=== PATIENT | male | born 1940 | race Caucasian/White ===

== ENCOUNTER 2019-03-24 16:00 | Inpatient (IN) ==
[2019-03-24] MEDS ORDERED: HYDROmorphone 2 MG/1 ML VIAL IV STA (16:02)
[2019-03-24] MEDS ORDERED: ONDANSETRON 4 MG/2 ML VIAL IV STA (16:02)
[2019-03-24 18:38] LABS: Basophils # 0.1 10*3/uL (0.0-0.2); Basophils % 0.4 % (0.0-0.8); Eosinophils % 0.2 % (0.00-10.9); Hematocrit 46.9 VOL% (42.0-52.0); Hemoglobin 15.7 GM/DL (14.0-18.0); Immature Granulocytes % 1.2 %; Lymphocytes # 1.1 10*3/uL (1.4-4.0); Lymphocytes % 6.4 % (21.2-54.2); Mean Corpuscular HGB Conc 33.5 GM/DL (32-36); Mean Corpuscular Volume 94.7 FL (87-102); Mean Platelet Volume 11.1 FL (9.6-12.0); Monocytes % 8.6 % (1.7-12.7); Neutrophils % 83.2 % (38.7-73.9); Platelet Count 224 T/CUMM (130-400); Red Blood Count 4.95 MC/CUMM (3.8-5.5); Red Cell Distribution Width 13.6 % (9.3-17.3)
[2019-03-24 18:43] LABS: PT Patient Result 10.5 SECS; Partial Thromboplastin Time < 21.0 SECS (0-40)
[2019-03-24 18:56] LABS: Albumin 3.7 G/DL (3.4-5.0); Bilirubin,Total 0.7 MG/DL (0.2-1.0); Calcium 8.9 MG/DL (8.5-10.1); Osmolality,Calculated 285.1 MOS/KG (273-304); Total Protein 7.1 G/DL (6.4-8.3)
[2019-03-24] MEDS ORDERED: ACETAMINOPHEN 325 MG TABLET PO PRN (19:08)
[2019-03-24] MEDS ORDERED: ONDANSETRON 4 MG/2 ML VIAL IV PRN (19:08)
[2019-03-24] MEDS: SODIUM CHLORIDE 0.9% 1,000 ML IV SCH (20:32)
[2019-03-24] MEDS: DOCUSATE SODIUM 100 MG CAPSULE PO SCH (20:35)
[2019-03-24] MEDS: SIMVASTATIN 80 MG TABLET PO SCH (20:36)
[2019-03-24] MEDS: HYDROmorphone 2 MG/1 ML VIAL IV PRN (22:24)
[2019-03-25] MEDS: HYDROmorphone 2 MG/1 ML VIAL IV PRN ×2 (02:41→07:37)
[2019-03-25 04:24] LABS: Apearance,Urine CLEAR (Clear); Bacteria,Urine Occasional /HPF (Few); Bilirubin,Urine Negative (Negative); Blood, Urine Negative (Negative); Glucose,Urine (UA) 50 mg/dL (Negative); Hyaline Casts,Urine 1 /LPF (0-3); Ketones,Urine 5 mg/dL (Negative); Mucus,Urine Occasional /LPF (Occasional); Nitrite,Urine Negative (Negative); Protein,Urine Negative; RBC,Urine 6 /HPF (0-4); Squamous Epithelial Cell,Urine Occasional /HPF (0-10); Urine Color Yellow (Yellow); Urine Specific Gravity 1.023 (1.001-1.035); Urine Urobilinogen < 2.0 EU/DL (0.2-1.0); WBC,Urine 1 /HPF (0-6)
[2019-03-25] MEDS: SODIUM CHLORIDE 0.9% 1,000 ML IV SCH (04:47)
[2019-03-25] MEDS ORDERED: VANCOMYCIN INJ 1,250 MG in SODIUM CHLORIDE 0.9% 250 ML IV ONE (06:00)
[2019-03-25] MEDS ORDERED: ceFAZolin 2,000 MG in PREMIX 1 EACH IV ONE (06:00)
[2019-03-25] MEDS: LEVOTHYROXINE 100 MCG TABLET PO SCH (08:14)
[2019-03-25] MEDS: DOCUSATE SODIUM 100 MG CAPSULE PO SCH ×2 (08:15→21:01)
[2019-03-25] MEDS: PANTOPRAZOLE 40 MG TABLET PO SCH (08:15)
[2019-03-25] MEDS ORDERED: PANTOPRAZOLE 40 MG TABLET PO SCH (09:00)
[2019-03-25] MEDS ORDERED: fentaNYL 100 MCG/2 ML VIAL ONE (12:19)
[2019-03-25] MEDS ORDERED: MIDAZOLAM 2 MG/2 ML VIAL ONE (12:20)
[2019-03-25] MEDS ORDERED: BACITRACIN OINT 0.9 GM PACK TOP ONE (12:37)
[2019-03-25] MEDS ORDERED: TRANEXAMIC ACID 1,000 MG/10 ML VIAL ONE ×2 (12:37→16:15)
[2019-03-25] MEDS ORDERED: BUPIVACAINE 0.25% /EPI 10 ML VIAL ONE (15:46)
[2019-03-25] MEDS ORDERED: MAGNESIUM HYDROXIDE SUSP 30 ML UDCUP PO PRN (16:05)
[2019-03-25] MEDS ORDERED: HYDROmorphone 2 MG/1 ML VIAL IV PRN (16:05)
[2019-03-25] MEDS ORDERED: KETOROLAC 15 MG/1 ML VIAL IV PRN (16:05)
[2019-03-25] MEDS ORDERED: PROPOFOL 200 MG/20 ML VIAL IV ONE (16:14)
[2019-03-25] MEDS ORDERED: ONDANSETRON 4 MG/2 ML VIAL ONE (16:15)
[2019-03-25] MEDS ORDERED: ROCURONIUM 100 MG/10 ML VIAL IV ONE (16:15)
[2019-03-25] MEDS ORDERED: SODIUM CHLORIDE 0.9% 250 ML IV ONE (16:15)
[2019-03-25] MEDS ORDERED: PHENYLEPHRINE 10 MG/1 ML VIAL IV ONE (16:15)
[2019-03-25] MEDS ORDERED: SEVOFLURANE 1 UNIT/15 MINUTE INH ONE (16:15)
[2019-03-25] MEDS: ceFAZolin 2,000 MG in SODIUM CHLORIDE 0.9% 100 ML IV SCH (20:54)
[2019-03-25] MEDS: SIMVASTATIN 80 MG TABLET PO SCH (21:00)
[2019-03-25] MEDS: CARVEDILOL 3.125 MG TABLET PO SCH (21:01)
[2019-03-26] MEDS: SODIUM CHLORIDE 0.9% 1,000 ML IV SCH ×3 (00:08→08:16)
[2019-03-26] MEDS: VANCOMYCIN INJ 1,000 MG in SODIUM CHLORIDE 0.9% 250 ML IV SCH ×2 (00:19→11:57)
[2019-03-26] MEDS: ceFAZolin 2,000 MG in SODIUM CHLORIDE 0.9% 100 ML IV SCH ×3 (03:07→21:15)
[2019-03-26 05:23] LABS: Basophils % 0.2 % (0.0-0.8); Hematocrit 35.1 VOL% (42.0-52.0); Hemoglobin 11.8 GM/DL (14.0-18.0); Immature Granulocytes % 0.5 %; Immature Granulocytes Absolute 0.07 #; Lymphocytes # 0.8 10*3/uL (1.4-4.0); Lymphocytes % 6.2 % (21.2-54.2); Mean Corpuscular HGB Conc 33.6 GM/DL (32-36); Mean Corpuscular Volume 96.4 FL (87-102); Mean Platelet Volume 11.9 FL (9.6-12.0); Neutrophils % 83.1 % (38.7-73.9); Platelet Count 139 T/CUMM (130-400); Red Blood Count 3.64 MC/CUMM (3.8-5.5); Red Cell Distribution Width 13.5 % (9.3-17.3); White Blood Count 13.2 T/CUMM (4-12)
[2019-03-26 05:46] LABS: Calcium 8.5 MG/DL (8.5-10.1); Osmolality,Calculated 279.4 MOS/KG (273-304)
[2019-03-26] MEDS: LEVOTHYROXINE 100 MCG TABLET PO SCH (09:48)
[2019-03-26] MEDS: ASPIRIN CHEW 81 MG TABLET PO SCH (09:48)
[2019-03-26] MEDS: DOCUSATE SODIUM 100 MG CAPSULE PO SCH ×2 (09:48→21:14)
[2019-03-26] MEDS: CARVEDILOL 3.125 MG TABLET PO SCH (09:48)
[2019-03-26] MEDS: PANTOPRAZOLE 40 MG TABLET PO SCH (09:48)
[2019-03-26] MEDS: SIMVASTATIN 80 MG TABLET PO SCH (21:14)
[2019-03-26] MEDS: CARVEDILOL 6.25 MG TABLET PO SCH (21:14)
[2019-03-27] MEDS: VANCOMYCIN INJ 1,000 MG in SODIUM CHLORIDE 0.9% 250 ML IV SCH ×2 (00:23→12:46)
[2019-03-27] MEDS: ceFAZolin 2,000 MG in SODIUM CHLORIDE 0.9% 100 ML IV SCH ×2 (05:13→14:12)
[2019-03-27 05:51] LABS: Basophils % 0.2 % (0.0-0.8); Eosinophils # 0.1 10*3/uL (0.0-0.87); Eosinophils % 1.1 % (0.00-10.9); Hemoglobin 11.4 GM/DL (14.0-18.0); Immature Granulocytes % 0.7 %; Immature Granulocytes Absolute 0.08 #; Lymphocytes # 1.2 10*3/uL (1.4-4.0); Lymphocytes % 11.1 % (21.2-54.2); Mean Corpuscular HGB Conc 33.5 GM/DL (32-36); Mean Corpuscular Volume 96.3 FL (87-102); Mean Platelet Volume 11.7 FL (9.6-12.0); Monocytes % 11.2 % (1.7-12.7); Neutrophils % 75.7 % (38.7-73.9); Platelet Count 115 T/CUMM (130-400); Red Blood Count 3.53 MC/CUMM (3.8-5.5); Red Cell Distribution Width 13.6 % (9.3-17.3); White Blood Count 10.8 T/CUMM (4-12)
[2019-03-27] MEDS: ASPIRIN CHEW 81 MG TABLET PO SCH (08:40)
[2019-03-27] MEDS: DOCUSATE SODIUM 100 MG CAPSULE PO SCH (08:41)
[2019-03-27] MEDS: CARVEDILOL 6.25 MG TABLET PO SCH (08:41)
[2019-03-27] MEDS: LEVOTHYROXINE 100 MCG TABLET PO SCH (08:41)
[2019-03-27] MEDS: PANTOPRAZOLE 40 MG TABLET PO SCH (08:41)
[2019-03-27] MEDS ORDERED: CLOPIDOGREL 75 MG TABLET PO SCH (09:00)
[2019-03-27] MEDS: HYDROmorphone 2 MG/1 ML VIAL IV PRN (11:21)
[2019-03-27 11:34] VITALS: BP 191/91
== END 2019-03-27 15:20 | DRG 483 ==
LOC: EDUNIT# → EDBD → N.ED 16:00 → N.EDINP 17:37 → N.3E 18:03
PROVIDERS: ADMIT Family Medicine; ATTEND Family Medicine